=== PATIENT | male | born 1965 | race Caucasian/White ===

== ENCOUNTER 2016-04-25 09:57 | Day surgery (SDC) | payer OTHER ==
[~2016-04-25] VITALS: Ht 185.4 cm; Wt 78.0 kg
[~2016-04-25 09:57] MED LIST: ELAVIL50 MG PO; FLEXERIL10 MG PO; KEFLEX500 MG PO; LISINOPRIL10 MG PO; LO-DOSE ASPIRIN81 M1 PO; MIRALAX17 GM PO; MOBIC15 MG PO; NAPROSYN500 MG PO; NAPROXEN500 MG PO; NORCO 5/3251 TABLET PO; OMEPRAZOLE20 MG PO; OXYCODONE-ACET1 EACH PO; PERCOCET 5/31 TABLET PO; PREDNISONE10 MG PO; PROZAC20 MG PO; TESSALON PERLE100 MG PO; TRAZODONE HCL100 MG PO; ULTRAM50 MG PO; ZANAFLEX2 MG PO; ZESTRIL10 MG PO; ZITHROMAX Z-PA250 MG PO
== END 2016-04-25 11:20 | disposition home or self-care (01) ==
LOC: PAIN 09:57 → SDC 10:45 → PAIN 10:45
PROC: 3E0S33Z Introduction of Anti-inflammatory into Epidural Space, Percutaneous Approach (ICD-10-PCS; principal; 2016-04-25)
DX: M47.26 Other spondylosis with radiculopathy, lumbar region (principal); M54.5 Low back pain; M47.16 Other spondylosis with myelopathy, lumbar region; M19.90 Unspecified osteoarthritis, unspecified site; F41.1 Generalized anxiety disorder; F32.9 Major depressive disorder, single episode, unspecified; M47.812 Spondylosis without myelopathy or radiculopathy, cervical region
CPT/HCPCS: J1030; J2250; J3010

== ENCOUNTER 2016-06-27 11:50 | Day surgery (SDC) | payer OTHER ==
[~2016-06-27] VITALS: Ht 182.9 cm; Wt 79.5 kg
[~2016-06-27 11:50] MED LIST changes: +AMBIEN10 MG PO; +KLONOPIN0.5 M1 PO; +SEROQUEL100 MG PO; +ZOLOFT100 MG PO
[2016-07-03] MEDS ORDERED: SEROQUEL100 MG PO (14:31)
== END 2016-06-27 14:10 | disposition home or self-care (01) ==
LOC: PAIN 11:50 → SDC 12:45 → PAIN 14:10
PROC: 01513ZZ Destruction of Cervical Nerve, Percutaneous Approach (ICD-10-PCS; principal; 2016-06-27)
DX: M47.812 Spondylosis without myelopathy or radiculopathy, cervical region (principal); I10 Essential (primary) hypertension; F17.210 Nicotine dependence, cigarettes, uncomplicated; F32.9 Major depressive disorder, single episode, unspecified; F31.9 Bipolar disorder, unspecified; Z79.891 Long term (current) use of opiate analgesic
CPT/HCPCS: J1030; J2250; J3010; S0020

== ENCOUNTER 2016-07-04 09:53 | Day surgery (SDC) | payer OTHER ==
[~2016-07-04] VITALS: Ht 182.9 cm; Wt 77.1 kg
[2016-07-04] MEDS ORDERED: AMBIEN10 MG PO (10:39)
== END 2016-07-04 11:55 | disposition home or self-care (01) ==
LOC: PAIN 09:53 → SDC 10:30 → PAIN 10:30
PROC: 01513ZZ Destruction of Cervical Nerve, Percutaneous Approach (ICD-10-PCS; principal; 2016-07-04)
DX: M47.812 Spondylosis without myelopathy or radiculopathy, cervical region (principal); M54.2 Cervicalgia; F41.9 Anxiety disorder, unspecified; M99.81 Other biomechanical lesions of cervical region; M79.1 Myalgia; M19.90 Unspecified osteoarthritis, unspecified site; I10 Essential (primary) hypertension; F32.9 Major depressive disorder, single episode, unspecified; F17.200 Nicotine dependence, unspecified, uncomplicated; Z91.09 Other allergy status, other than to drugs and biological substances
CPT/HCPCS: J1030; J2250; J3010; S0020

== ENCOUNTER → 2016-10-23 | Outpatient (CLI) | payer OTHER | END | disposition home or self-care (01) | LOC: CDC 10:00 | DX: M79.642 Pain in left hand (principal); M65.322 Trigger finger, left index finger; M65.339 Trigger finger, unspecified middle finger | CPT/HCPCS: 93000 ==

== ENCOUNTER 2016-12-05 08:35 | Day surgery (SDC) | payer OTHER ==
[~2016-12-05] VITALS: Ht 182.9 cm; Wt 77.1 kg
== END 2016-12-05 10:31 | disposition home or self-care (01) ==
LOC: PAIN 08:35 → SDC 09:15 → PAIN 10:31
DX: M47.26 Other spondylosis with radiculopathy, lumbar region (principal); M47.16 Other spondylosis with myelopathy, lumbar region; M47.812 Spondylosis without myelopathy or radiculopathy, cervical region; I10 Essential (primary) hypertension; F10.20 Alcohol dependence, uncomplicated; F17.290 Nicotine dependence, other tobacco product, uncomplicated; F41.8 Other specified anxiety disorders
CPT/HCPCS: J1030; J2250; J3010

== ENCOUNTER 2017-01-02 08:21 | Day surgery (SDC) | payer OTHER ==
[~2017-01-02] VITALS: Ht 182.9 cm; Wt 77.1 kg
[2017-01-02] MEDS ORDERED: XANAX0.5 MG PO (08:38)
== END 2017-01-02 09:33 | disposition home or self-care (01) ==
LOC: PAIN 08:21 → SDC 09:00 → PAIN 09:33
DX: M47.26 Other spondylosis with radiculopathy, lumbar region (principal); M47.16 Other spondylosis with myelopathy, lumbar region; F10.20 Alcohol dependence, uncomplicated; I10 Essential (primary) hypertension; M50.920 Unspecified cervical disc disorder, mid-cervical region, unspecified level; F41.8 Other specified anxiety disorders; F17.200 Nicotine dependence, unspecified, uncomplicated
CPT/HCPCS: J1030; J2250; J3010

== ENCOUNTER 2017-07-22 09:30 | Day surgery (SDC) | payer OTHER ==
[~2017-07-22] VITALS: Ht 182.9 cm; Wt 78.0 kg
[~2017-07-22 09:30] MED LIST changes: +ANORO ELLIPTA1 EACH IH; +ERGOCALCIF50000 UNIT PO; +NEURONTIN300 MG PO; +ROXICODONE5 MG PO; +XANAX0.5 MG PO
[2017-07-24] MEDS ORDERED: NAPROSYN500 MG PO (15:38)
[2017-07-24] MEDS ORDERED: NEURONTIN300 MG PO (15:39)
[2017-07-24] MEDS ORDERED: LISINOPRIL10 MG PO (15:39)
[2017-07-24] MEDS ORDERED: MUCINEX D ER T1 EACH PO (15:40)
== END 2017-07-22 12:15 | disposition home or self-care (01) ==
LOC: PAIN 09:30 → SDC 10:30 → PAIN 12:15
DX: M47.812 Spondylosis without myelopathy or radiculopathy, cervical region (principal); M50.920 Unspecified cervical disc disorder, mid-cervical region, unspecified level; M99.81 Other biomechanical lesions of cervical region; F17.200 Nicotine dependence, unspecified, uncomplicated; G89.29 Other chronic pain; I10 Essential (primary) hypertension; E78.00 Pure hypercholesterolemia, unspecified; E55.9 Vitamin D deficiency, unspecified; Z88.1 Allergy status to other antibiotic agents; Z91.048 Other nonmedicinal substance allergy status
CPT/HCPCS: J1030; J2250; S0020

== ENCOUNTER → 2017-08-25 | Outpatient (CLI) | payer OTHER ==
[~2017-08-25] VITALS: Ht 177.8 cm; Wt 72.1 kg
[~2017-08-25] MED LIST changes: +INCRUSE ELLI62.5 MCG IH; +MUCINEX D ER T1 EACH PO
[2017-08-25 08:38] LABS: HEMATOCRIT 44.1 % (38.0-50.0); HEMOGLOBIN 15.4 G/DL (12.5-16.6); MCV 90.7 FL (86-99)
== END | disposition home or self-care (01) ==
LOC: AMB 08-15 08:00
PROVIDERS: Anesthesiology
DX: Z12.11 Encounter for screening for malignant neoplasm of colon (principal); D12.5 Benign neoplasm of sigmoid colon; K62.1 Rectal polyp; K57.30 Diverticulosis of large intestine without perforation or abscess without bleeding; K64.8 Other hemorrhoids; K59.09 Other constipation; F10.20 Alcohol dependence, uncomplicated; G89.29 Other chronic pain; M54.16 Radiculopathy, lumbar region; J44.9 Chronic obstructive pulmonary disease, unspecified; I10 Essential (primary) hypertension; E78.00 Pure hypercholesterolemia, unspecified; E55.9 Vitamin D deficiency, unspecified; F17.200 Nicotine dependence, unspecified, uncomplicated; Z80.0 Family history of malignant neoplasm of digestive organs; Z83.49 Family history of other endocrine, nutritional and metabolic diseases; Z82.49 Family history of ischemic heart disease and other diseases of the circulatory system; Z83.3 Family history of diabetes mellitus
CPT/HCPCS: 85014; 85018; 88305; 93005; J2250

== ENCOUNTER 2017-09-23 08:29 | Day surgery (SDC) | payer OTHER ==
[~2017-09-23] VITALS: Ht 182.9 cm; Wt 73.9 kg
[~2017-09-23 08:29] MED LIST changes: +ADVAIR 250/501 DISK IH; +NEURONTIN400 MG PO
== END 2017-09-23 09:40 | disposition home or self-care (01) ==
LOC: PAIN 08:29
DX: M47.816 Spondylosis without myelopathy or radiculopathy, lumbar region (principal); M54.16 Radiculopathy, lumbar region; M47.812 Spondylosis without myelopathy or radiculopathy, cervical region; J44.9 Chronic obstructive pulmonary disease, unspecified; I10 Essential (primary) hypertension; F41.8 Other specified anxiety disorders; Z79.891 Long term (current) use of opiate analgesic; F17.290 Nicotine dependence, other tobacco product, uncomplicated
CPT/HCPCS: J1030; J2250; S0020

== ENCOUNTER 2017-09-30 09:47 | Day surgery (SDC) | payer OTHER ==
[~2017-09-30] VITALS: Ht 182.9 cm; Wt 78.0 kg
== END 2017-09-30 11:01 | disposition home or self-care (01) ==
LOC: PAIN 09:47
DX: M47.16 Other spondylosis with myelopathy, lumbar region (principal); M54.16 Radiculopathy, lumbar region; M47.812 Spondylosis without myelopathy or radiculopathy, cervical region; M17.10 Unilateral primary osteoarthritis, unspecified knee; G89.29 Other chronic pain; I10 Essential (primary) hypertension; J44.9 Chronic obstructive pulmonary disease, unspecified; Z79.891 Long term (current) use of opiate analgesic; F17.200 Nicotine dependence, unspecified, uncomplicated
CPT/HCPCS: J1030; J1100; J2250; J3010; S0020

== ENCOUNTER 2017-10-28 10:18 | Day surgery (SDC) | payer OTHER ==
[~2017-10-28] VITALS: Ht 182.9 cm; Wt 78.0 kg
[2017-10-31] MEDS ORDERED: NAPROSYN500 MG PO (11:06)
== END 2017-10-28 11:53 | disposition home or self-care (01) ==
LOC: PAIN 10:18 → SDC 11:00 → PAIN 11:53
DX: M47.16 Other spondylosis with myelopathy, lumbar region (principal); M47.812 Spondylosis without myelopathy or radiculopathy, cervical region; G89.29 Other chronic pain; M54.41 Lumbago with sciatica, right side; J44.9 Chronic obstructive pulmonary disease, unspecified; I10 Essential (primary) hypertension; F41.8 Other specified anxiety disorders; E78.00 Pure hypercholesterolemia, unspecified; F17.200 Nicotine dependence, unspecified, uncomplicated; Z79.891 Long term (current) use of opiate analgesic
CPT/HCPCS: J1030; J1885; J2250; S0020

== ENCOUNTER 2017-11-04 10:14 | Day surgery (SDC) | payer OTHER ==
[~2017-11-04] VITALS: Ht 182.9 cm; Wt 78.0 kg
== END 2017-11-04 11:50 | disposition home or self-care (01) ==
LOC: PAIN 10:14 → SDC 11:00 → PAIN 11:50
PROC: BR161ZZ Fluoroscopy of Lumbar Facet Joint(s) using Low Osmolar Contrast (ICD-10-PCS; principal; 2017-11-04)
PROC: 3E0T3TZ Introduction of Destructive Agent into Peripheral Nerves and Plexi, Percutaneous Approach (ICD-10-PCS; principal; 2017-11-04)
DX: M47.16 Other spondylosis with myelopathy, lumbar region (principal); M54.16 Radiculopathy, lumbar region; M47.812 Spondylosis without myelopathy or radiculopathy, cervical region; F17.200 Nicotine dependence, unspecified, uncomplicated; M54.12 Radiculopathy, cervical region; J44.9 Chronic obstructive pulmonary disease, unspecified; Z79.891 Long term (current) use of opiate analgesic; G89.29 Other chronic pain; E78.00 Pure hypercholesterolemia, unspecified; Z88.1 Allergy status to other antibiotic agents; Z91.048 Other nonmedicinal substance allergy status
CPT/HCPCS: J1030; J2250; S0020

== ENCOUNTER 2017-12-03 10:27 | Emergency (ER) | payer OTHER ==
[~2017-12-03] VITALS: Ht 182.9 cm; Wt 78.0 kg
[2017-12-03 11:17] LABS: HEMATOCRIT 44.5 % (38.0-50.0); HEMOGLOBIN 15.4 G/DL (12.5-16.6); MCH 32.5 PG (29.0-34.0); MCHC 34.6 G/DL (30.0-36.0); MCV 93.9 FL (86-99); PLATELET COUNT 168 K/uL (156-360); RBC DIS.WIDTH-CV 14.1 % (11.8-14.6); RBC DIS.WIDTH-SD 49.1 % (39-53); RED BLOOD COUNT 4.74 M/uL (4.00-5.50); WHITE BLOOD COUNT 7.9 K/uL (4.1-10.2)
[2017-12-03 11:55] LABS: CHLORIDE 104 MEQ/L (99-109); POTASSIUM 4.2 MEQ/L (3.7-5.4); SODIUM 139 MEQ/L (136-147)
[2017-12-03 12:01] LABS: CREATININE 0.6 MG/DL (0.6-1.3); GFR ESTIMATE (CALCULATED) > 59 mL/min/ (58.99-99999); GLUCOSE 81 mg/dL (70-99); UREA NITROGEN (BUN) 6 mg/dL (9-23)
[2017-12-03 12:05] LABS: TROP-I INTERPRETATION NEGATIVE; TROPONIN-I < 0.01 ng/mL (0.0-0.30)
[2017-12-03 13:19] LABS: D-DIMER ELISA < 150.00 ng/mLDDU (<230)
[2017-12-03 14:08] LABS: TROP-I INTERPRETATION NEGATIVE; TROPONIN-I < 0.01 ng/mL (0.0-0.30)
[2017-12-03 14:19] LABS: ALBUMIN 4.3 G/DL (3.2-4.8); ALKALINE PHOSPHATASE 66 IU/L (3-129); ALT (GPT) 30 IU/L (3-49); AST (GOT) 33 IU/L (2-34); LIPASE 101 U/L (1.0-51.0); TOTAL BILIRUBIN 0.4 MG/DL (0.0-1.0); TOTAL PROTEIN 6.9 G/DL (6.4-8.3)
[2017-12-03 14:39] VITALS: BP 121/74
== END 2017-12-03 14:41 | disposition home or self-care (01) ==
LOC: EME 10:27
PROVIDERS: Emergency Medicine
DX: R07.89 Other chest pain (principal); J44.9 Chronic obstructive pulmonary disease, unspecified; F17.200 Nicotine dependence, unspecified, uncomplicated; F32.9 Major depressive disorder, single episode, unspecified; Z88.8 Allergy status to other drugs, medicaments and biological substances
CPT/HCPCS: 71046; 80048; 80076; 83690; 84484; 85027; 85379; 93005; 99281; 99285